=== PATIENT | female | born 1995 | race Caucasian/White ===

== ENCOUNTER 2018-03-13 16:36 | Emergency (ER) | payer OTHER ==
[2018-03-13] MEDS ORDERED: TETRACAINE HCL 0.5% OPH SOLN 2 ML ONE (16:57)
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
[2018-03-13] MEDS ORDERED: KETOROLAC TROMETHAMINE INJ/PF 30 MG/1 ML SDV IV ONE (18:53)
[2018-03-13] MEDS ORDERED: DIAZEPAM 5 MG TABLET PO ONE (18:54)
[2018-03-13] MEDS ORDERED: ERYTHROMYCIN 0.5% OPH OINTMENT 3.5 GM TUBE OD ONE (20:02)
[2018-03-13 20:04] VITALS: BP 88/75
== END 2018-03-13 20:29 | disposition home or self-care (01) ==
LOC: ER 16:36
DX: S05.8X2A Other injuries of left eye and orbit, initial encounter (principal); S01.21XA Laceration without foreign body of nose, initial encounter; S01.112A Laceration without foreign body of left eyelid and periocular area, initial encounter; M62.838 Other muscle spasm; M54.2 Cervicalgia; V49.50XA Passenger injured in collision with unspecified motor vehicles in traffic accident, initial encounter; Z88.2 Allergy status to sulfonamides; H53.8 Other visual disturbances
CPT/HCPCS: 99291; 96374; 76604; 70450; 70486; 72125; 72128; J1885; J3490